=== PATIENT | male | born 1995 | race Caucasian/White ===

== ENCOUNTER 2017-04-28 17:52 | Emergency (ER) | payer OTHER ==
[~2017-04-28] VITALS: Wt 68.0 kg
[~2017-04-28 17:52] MED LIST: BENADRYL ALLERG25 M5 PO; CLARITIN10 MG PO; EPI-PEN1 MG/ML MR; EPIPEN 2-PAK1 MG/ML IJ; MEDROL DOSEPAK4 MG PO; PEPCID20 MG PO; PREDNISONE10 MG PO
[2017-04-28] MEDS ORDERED: EPIPEN 2-PAK1 MG/ML IJ (18:00)
[2017-04-28] MEDS ORDERED: PREDNISONE20 M1 PO (19:12)
[2017-04-28] MEDS ORDERED: BENADRYL ALLERG25 M5 PO (19:12)
[2017-04-28] MEDS ORDERED: PEPCID20 MG PO (19:12)
== END 2017-04-28 19:35 | disposition home or self-care (01) ==
LOC: ED 17:52
DX: T78.40XA Allergy, unspecified, initial encounter (principal); R60.9 Edema, unspecified; Z88.1 Allergy status to other antibiotic agents; Y92.9 Unspecified place or not applicable

== ENCOUNTER 2017-05-07 22:25 | Emergency (ER) | payer OTHER ==
[~2017-05-07] VITALS: Wt 68.0 kg
[~2017-05-07 22:25] MED LIST changes: +PREDNISONE20 M1 PO
[2017-05-07] MEDS ORDERED: HYDROCODONE BIT1 T11 PO (23:32)
== END 2017-05-08 00:41 | disposition home or self-care (01) ==
LOC: ED 22:25
DX: S62.396A Other fracture of fifth metacarpal bone, right hand, initial encounter for closed fracture (principal); Z88.1 Allergy status to other antibiotic agents; W22.01XA Walked into wall, initial encounter; Y93.89 Activity, other specified; Y92.89 Other specified places as the place of occurrence of the external cause; Y99.8 Other external cause status

== ENCOUNTER 2017-07-29 21:09 | Emergency (ER) | payer OTHER ==
[~2017-07-29] VITALS: Ht 187.9 cm; Wt 68.0 kg
--- NOTE | ~2017-07-29 | EKG ---
[place], [place] ELECTROCARDIOGRAM REPORT NAME: RAVINDRA MAYEN UNIT #: [id number] ROOM: DOCTOR: CARLITOS SCHAEFER,TAI BIRTHDATE: [birth year] DOS: 07/29/2017 TIME: 2124 hours. INTERPRETATION: 1. Sinus rhythm. 2. Nonspecific ST-T changes. TAI URBINA MD CM:EKGRPT:ELECTROCARDIOGRAM REPORT [id number] TAI URBINA MD
[~2017-07-29 21:09] MED LIST changes: +HYDROCODONE BIT1 T11 PO
[2017-07-29 22:14] LABS: BASO # 0.1 10*3/uL (0.0-0.1); BASO % 0.8 % (0.0-1.0); EOS # 0.5 10*3/uL (0.0-0.4); EOS % 6.9 % (1.0-4.0); HEMATOCRIT 42.3 % (42.0-52.0); HEMOGLOBIN 14.5 g/dl (14.0-18.0); LYMPH # 2.6 10*3/uL (1.3-4.4); LYMPH % 35.7 % (27.0-41.0); MEAN CELL VOLUME 87.9 fl (80.0-94.0); MEAN CORPUSCULAR HGB 30.1 pg (27.0-31.0); MEAN CORPUSCULAR HGB CONC 34.3 g/dl (33.0-37.0); MEAN PLATELET VOLUME 9.5 fl (9.6-12.3); MONO # 0.7 10*3/uL (0.1-1.0); MONO % 9.5 % (3.0-9.0); NEUT # 3.4 10*3/uL (2.3-7.9); PLATELET COUNT AUTOMATED 252 10*3/uL (130-400); RED BLOOD COUNT 4.81 10*6/uL (4.50-5.90); RED CELL DISTRI WIDTH 11.7 % (0-14.5); WHITE BLOOD COUNT 7.3 10*3/uL (4.8-10.8)
[2017-07-29 22:38] LABS: ALBUMIN 4.2 gm/dl (3.1-4.5); ALKALINE PHOSPHATASE 113 U/L (45-117); BUN 10 mg/dl (7-24); CHLORIDE 104 mmol/L (98-107); CPK 66 U/L (39-308); CREATININE 1.13 mg/dL (0.70-1.30); LDH 128 U/L (87-241); MAGNESIUM 2.2 mg/dL (1.5-2.1); POTASSIUM 3.2 mmol/L (3.5-5.1); SGOT/AST 12 IU/L (3-35); SGPT/ALT 12 U/L (12-78); SODIUM 140 mmol/L (136-145); TOTAL PROTEIN 7.9 gm/dL (6.4-8.2)
[2017-07-29 22:39] LABS: CKMB < 0.5 ng/ml (0.5-3.6); TROPONIN I < 0.015 ng/ml (<0.045)
[2017-07-29] MEDS ORDERED: VISTARIL25 MG PO (23:52)
== END 2017-07-30 00:05 | disposition home or self-care (01) ==
LOC: ED 21:09
PROVIDERS: Physician Assistant
DX: R07.9 Chest pain, unspecified (principal); R06.02 Shortness of breath; Z88.1 Allergy status to other antibiotic agents; Z91.018 Allergy to other foods

== ENCOUNTER 2019-09-21 21:01 | Emergency (ER) | payer OTHER ==
[~2019-09-21] VITALS: Ht 187.9 cm; Wt 68.0 kg
--- NOTE | ~2019-09-21 | EKG ---
[place], [place] ELECTROCARDIOGRAM REPORT NAME: RAVINDRA MAYEN UNIT #: [id number] ROOM: DOCTOR: EPIPHANY DRAFT REPORT BIRTHDATE: [birth year] [facility] Test Date: 2019-09-21 Test Time: 21:18:15 Pat Name: RAVINDRA MAYEN Department: Room: Gender: M Platform Engineer: : 1995 Requested By: GERARD MOBLEY Order Number: [id number] Reading MD: Andrew Lawson MD Measurements Intervals [place] Rate: 85 P: 84 NC: 146 QRS: 74 QRSD: 83 T: 17 QT: 336 QTc: 400 Interpretive Statements Sinus rhythm Left atrial enlargement Electronically Signed On 09-22-2019 8:13:42 PDT by Andrew Lawson MD CM:EKGRPT:ELECTROCARDIOGRAM REPORT [id number] GERARD MOBLEY EPIPHANY DRAFT REPORT GERARD MOBLEY
[~2019-09-21 21:01] MED LIST changes: +VISTARIL25 MG PO
[2019-09-21 21:20] LABS: BASO # 0.1 10*3/uL (0.0-0.1); BASO % 0.8 % (0.0-1.0); EOS # 0.8 10*3/uL (0.0-0.4); EOS % 10.1 % (1.0-4.0); HEMATOCRIT 44.4 % (42.0-52.0); HEMOGLOBIN 14.9 g/dl (14.0-18.0); LYMPH # 1.7 10*3/uL (1.3-4.4); LYMPH % 22.1 % (27.0-41.0); MEAN CELL VOLUME 92.3 fl (80.0-94.0); MEAN CORPUSCULAR HGB CONC 33.6 g/dl (33.0-37.0); MEAN PLATELET VOLUME 9.1 fl (9.6-12.3); MONO # 0.5 10*3/uL (0.1-1.0); MONO % 6.6 % (3.0-9.0); NEUT # 4.7 10*3/uL (2.3-7.9); NEUT % 60.1 % (47.0-73.0); PLATELET COUNT AUTOMATED 272 10*3/uL (130-400); RED BLOOD COUNT 4.81 10*6/uL (4.50-5.90); RED CELL DISTRI WIDTH 11.8 % (0-14.5); WHITE BLOOD COUNT 7.8 10*3/uL (4.8-10.8)
[2019-09-21 21:52] LABS: ALBUMIN 4.1 gm/dl (3.1-4.5); ALKALINE PHOSPHATASE 84 U/L (45-117); BUN 12 mg/dl (7-24); CHLORIDE 105 mmol/L (98-107); CPK 93 U/L (39-308); CREATININE 1.13 mg/dL (0.70-1.30); POTASSIUM 3.5 mmol/L (3.5-5.1); SGOT/AST 15 IU/L (3-35); SGPT/ALT 18 U/L (12-78); SODIUM 140 mmol/L (136-145); TOTAL PROTEIN 7.6 gm/dL (6.4-8.2)
[2019-09-21 21:53] LABS: TROPONIN I < 0.015 ng/ml (<0.045)
== END 2019-09-21 22:41 | disposition home or self-care (01) ==
LOC: ED 21:01
PROVIDERS: Nurse Practitioner Family
DX: T75.4XXA Electrocution, initial encounter (principal); R20.0 Anesthesia of skin; Z91.018 Allergy to other foods; Z88.1 Allergy status to other antibiotic agents; W86.1XXA Exposure to industrial wiring, appliances and electrical machinery, initial encounter; Y93.89 Activity, other specified; Y92.69 Other specified industrial and construction area as the place of occurrence of the external cause; Y99.0 Civilian activity done for income or pay

== ENCOUNTER → 2021-02-09 | Outpatient (CLI) | payer SELFPAY | END | disposition home or self-care (01) | LOC: COVID19 15:24 | PROVIDERS: ATTEND Pediatrics | DX: U07.1 COVID-19 (principal) ==

== ENCOUNTER 2021-04-30 14:05 | Inpatient (IN) | payer OTHER ==
[~2021-04-30] VITALS: Ht 185.4 cm; Wt 67.3 kg
[2021-04-30] VITALS (7 sets, daily range): BP systolic 114–139; BP diastolic 63–91
[2021-04-30 16:07] LABS: BASO # 0.1 10*3/uL (0.0-0.1); BASO % 0.4 % (0.0-1.0); EOS % 0.3 % (1.0-4.0); HEMATOCRIT 47.7 % (42.0-52.0); LYMPH # 0.8 10*3/uL (1.3-4.4); LYMPH % 7.3 % (27.0-41.0); MEAN CELL VOLUME 86.4 fl (80.0-94.0); MEAN CORPUSCULAR HGB 29.3 pg (27.0-31.0); MEAN PLATELET VOLUME 8.4 fl (9.6-12.3); MONO # 0.4 10*3/uL (0.1-1.0); MONO % 3.5 % (3.0-9.0); NEUT # 10.1 10*3/uL (2.3-7.9); PLATELET COUNT AUTOMATED 327 10*3/uL (130-400); RED BLOOD COUNT 5.52 10*6/uL (4.50-5.90); RED CELL DISTRI WIDTH 11.7 % (0-14.5); WHITE BLOOD COUNT 11.5 10*3/uL (4.8-10.8)
[2021-04-30 16:23] LABS: ALBUMIN 4.2 gm/dl (3.1-4.5); ALKALINE PHOSPHATASE 107 U/L (45-117); BUN 6 mg/dl (7-24); CHLORIDE 105 mmol/L (98-107); CREATININE 1.02 mg/dL (0.70-1.30); LIPASE 92 U/L (73-393); POTASSIUM 4.3 mmol/L (3.5-5.1); SGOT/AST 11 IU/L (3-35); SGPT/ALT 17 U/L (12-78); SODIUM 136 mmol/L (136-145); TOTAL PROTEIN 8.5 gm/dL (6.4-8.2)
[2021-04-30 16:24] LABS: TROPONIN I < 0.015 ng/ml (<0.045)
[2021-05-01] VITALS: BP 117/69
[2021-05-01 06:02] LABS: BUN 12 mg/dl (7-24); CHLORIDE 108 mmol/L (98-107); CREATININE 1.13 mg/dL (0.70-1.30); POTASSIUM 3.9 mmol/L (3.5-5.1); SODIUM 138 mmol/L (136-145)
[2021-05-01 06:04] LABS: INTERNATIONAL NORM RATIO 1.1 (2.0-3.5)
[2021-05-01 06:12] LABS: BASO # 0.1 10*3/uL (0.0-0.1); BASO % 0.7 % (0.0-1.0); EOS # 0.4 10*3/uL (0.0-0.4); EOS % 4.3 % (1.0-4.0); HEMATOCRIT 47.2 % (42.0-52.0); LYMPH # 2.3 10*3/uL (1.3-4.4); LYMPH % 26.9 % (27.0-41.0); MEAN CELL VOLUME 88.4 fl (80.0-94.0); MEAN CORPUSCULAR HGB 29.4 pg (27.0-31.0); MEAN CORPUSCULAR HGB CONC 33.3 g/dl (33.0-37.0); MEAN PLATELET VOLUME 8.7 fl (9.6-12.3); MONO # 0.7 10*3/uL (0.1-1.0); MONO % 8.6 % (3.0-9.0); NEUT # 5.1 10*3/uL (2.3-7.9); NEUT % 59.2 % (47.0-73.0); PLATELET COUNT AUTOMATED 301 10*3/uL (130-400); RED BLOOD COUNT 5.34 10*6/uL (4.50-5.90); RED CELL DISTRI WIDTH 11.8 % (0-14.5); WHITE BLOOD COUNT 8.6 10*3/uL (4.8-10.8)
[2021-05-01 08:00] VITALS: BP 119/77
[2021-05-01 12:00] VITALS: BP 121/75
[2021-05-01 16:00] VITALS: BP 109/71
[2021-05-01 20:00] VITALS: BP 121/81
[2021-05-02 05:55] LABS: BUN 11 mg/dl (7-24); CHLORIDE 106 mmol/L (98-107); CREATININE 1.11 mg/dL (0.70-1.30); POTASSIUM 4.4 mmol/L (3.5-5.1); SODIUM 136 mmol/L (136-145)
[2021-05-02 06:23] LABS: BASO # 0.1 10*3/uL (0.0-0.1); BASO % 0.7 % (0.0-1.0); EOS # 0.5 10*3/uL (0.0-0.4); EOS % 7.1 % (1.0-4.0); HEMATOCRIT 47.1 % (42.0-52.0); LYMPH % 28.1 % (27.0-41.0); MEAN CELL VOLUME 87.9 fl (80.0-94.0); MEAN CORPUSCULAR HGB 29.1 pg (27.0-31.0); MEAN CORPUSCULAR HGB CONC 33.1 g/dl (33.0-37.0); MEAN PLATELET VOLUME 8.5 fl (9.6-12.3); MONO # 0.7 10*3/uL (0.1-1.0); MONO % 9.6 % (3.0-9.0); NEUT # 3.8 10*3/uL (2.3-7.9); NEUT % 54.2 % (47.0-73.0); PLATELET COUNT AUTOMATED 296 10*3/uL (130-400); RED BLOOD COUNT 5.36 10*6/uL (4.50-5.90); RED CELL DISTRI WIDTH 11.9 % (0-14.5); WHITE BLOOD COUNT 7.1 10*3/uL (4.8-10.8)
[2021-05-02 08:00] VITALS: BP 111/77
[2021-05-02 12:00] VITALS: BP 130/87
[2021-05-02 16:00] VITALS: BP 116/96
[2021-05-02 20:00] VITALS: BP 121/80
[2021-05-03] VITALS: BP 121/83
[2021-05-03 08:00] VITALS: BP 130/81
[2021-05-03 12:00] VITALS: BP 123/88
[2021-05-03 16:00] VITALS: BP 118/81
[2021-05-03 20:00] VITALS: BP 122/83
[2021-05-04 06:38] LABS: BUN 15 mg/dl (7-24); CHLORIDE 100 mmol/L (98-107); CREATININE 1.04 mg/dL (0.70-1.30); POTASSIUM 4.2 mmol/L (3.5-5.1); SODIUM 136 mmol/L (136-145)
[2021-05-04 06:47] LABS: BASO # 0.1 10*3/uL (0.0-0.1); BASO % 0.7 % (0.0-1.0); EOS # 0.4 10*3/uL (0.0-0.4); EOS % 5.6 % (1.0-4.0); HEMATOCRIT 46.4 % (42.0-52.0); LYMPH # 1.8 10*3/uL (1.3-4.4); LYMPH % 23.1 % (27.0-41.0); MEAN CELL VOLUME 85.9 fl (80.0-94.0); MEAN CORPUSCULAR HGB 29.4 pg (27.0-31.0); MEAN CORPUSCULAR HGB CONC 34.3 g/dl (33.0-37.0); MEAN PLATELET VOLUME 8.5 fl (9.6-12.3); MONO # 0.7 10*3/uL (0.1-1.0); MONO % 9.6 % (3.0-9.0); NEUT # 4.6 10*3/uL (2.3-7.9); NEUT % 60.6 % (47.0-73.0); PLATELET COUNT AUTOMATED 298 10*3/uL (130-400); RED CELL DISTRI WIDTH 11.7 % (0-14.5); WHITE BLOOD COUNT 7.6 10*3/uL (4.8-10.8)
[2021-05-04 08:00] VITALS: BP 117/76
[2021-05-04 12:00] VITALS: BP 125/85
[2021-05-04 16:00] VITALS: BP 118/80
== END 2021-05-04 19:10 | disposition short-term general hospital (02) | DRG 143 ==
LOC: ED 14:05 → EDHOLD 19:21 → 4E 19:21
PROVIDERS: Internal Medicine Nephrology; Physician Assistant; Social Worker Clinical; Student in an Organized Health Care Education/Training Program; ADMIT Internal Medicine; ATTEND Internal Medicine
PROC: 0W9B30Z Drainage of Left Pleural Cavity with Drainage Device, Percutaneous Approach (ICD-10-PCS; principal; 2021-04-30)
DX: J93.11 Primary spontaneous pneumothorax (principal); F41.1 Generalized anxiety disorder; D72.829 Elevated white blood cell count, unspecified; E83.41 Hypermagnesemia; E80.6 Other disorders of bilirubin metabolism; E88.09 Other disorders of plasma-protein metabolism, not elsewhere classified; J93.82 Other air leak; J21.9 Acute bronchiolitis, unspecified; R23.0 Cyanosis; Z88.8 Allergy status to other drugs, medicaments and biological substances; Z91.018 Allergy to other foods; Z91.048 Other nonmedicinal substance allergy status

== ENCOUNTER → 2021-05-20 | Outpatient (CLI) | payer OTHER ==
[2021-05-21 15:07] LABS: ANTISCLERODERMA-70 AB <0.2 AI (0.0-0.9)
== END | disposition home or self-care (01) ==
LOC: LAB 12:56
PROVIDERS: ATTEND Internal Medicine Nephrology
DX: L94.3 Sclerodactyly (principal)

== ENCOUNTER 2022-12-27 18:22 | Emergency (ER) | payer OTHER ==
[~2022-12-27] VITALS: Ht 187.9 cm; Wt 72.6 kg
[2022-12-27 18:29] VITALS: BP 134/85
[2022-12-27 22:54] VITALS: BP 130/73
[2022-12-27 23:15] VITALS: BP 95/53
[2022-12-27] MEDS ORDERED: CARAFATE1 G1 PO (23:19)
[2022-12-27] MEDS ORDERED: PROTONIX40 MG PO (23:19)
[2022-12-27 23:30] VITALS: BP 95/42
[2022-12-27 23:44] VITALS: BP 107/56
== END 2022-12-28 00:29 | disposition short-term general hospital (02) ==
LOC: ED 18:22 → EDHOLD 23:30 → ED 23:30
DX: K22.2 Esophageal obstruction (principal); T18.120A Food in esophagus causing compression of trachea, initial encounter; F41.9 Anxiety disorder, unspecified; E83.41 Hypermagnesemia; E88.09 Other disorders of plasma-protein metabolism, not elsewhere classified; E80.6 Other disorders of bilirubin metabolism; Z91.018 Allergy to other foods; Z88.8 Allergy status to other drugs, medicaments and biological substances; X58.XXXA Exposure to other specified factors, initial encounter; Y93.89 Activity, other specified; Y92.009 Unspecified place in unspecified non-institutional (private) residence as the place of occurrence of the external cause; Y99.8 Other external cause status

== ENCOUNTER → 2023-04-15 | Outpatient (CLI) | payer OTHER ==
[~2023-04-15] MED LIST changes: +CARAFATE1 G1 PO; +PROTONIX40 MG PO
== END | disposition home or self-care (01) ==
LOC: RAD 12:50
PROVIDERS: ATTEND Internal Medicine Nephrology
DX: M25.512 Pain in left shoulder (principal); M54.2 Cervicalgia

== ENCOUNTER 2024-04-24 23:02 | Emergency (ER) | payer SELFPAY ==
[~2024-04-24] VITALS: Wt 70.3 kg
[2024-04-25 00:28] LABS: BASO # 0.1 10*3/uL (0.0-0.1); BASO % 0.6 % (0.0-1.0); EOS # 0.3 10*3/uL (0.0-0.4); EOS % 3.7 % (1.0-4.0); LYMPH # 1.7 10*3/uL (1.3-4.4); LYMPH % 21.4 % (27.0-41.0); MEAN CELL VOLUME 93.7 fl (80.0-94.0); MEAN CORPUSCULAR HGB 30.5 pg (27.0-31.0); MEAN CORPUSCULAR HGB CONC 32.6 g/dl (33.0-37.0); MEAN PLATELET VOLUME 8.7 fl (9.6-12.3); MONO # 0.4 10*3/uL (0.1-1.0); MONO % 4.9 % (3.0-9.0); NEUT # 5.5 10*3/uL (2.3-7.9); NEUT % 69.1 % (47.0-73.0); PLATELET COUNT AUTOMATED 281 10*3/uL (130-400); RED BLOOD COUNT 4.91 10*6/uL (4.50-5.90); WHITE BLOOD COUNT 7.9 10*3/uL (4.8-10.8)
[2024-04-25 00:41] LABS: ACT PARTIAL THROMBO TIME 28.5 SECONDS (20.0-32.1)
[2024-04-25 00:43] LABS: ALKALINE PHOSPHATASE 93 U/L (46-116); BUN 5 mg/dl (9-23); CHLORIDE 103 mmol/L (98-107); ETHYL ALCOHOL 299.2 mg/dl (<3); POTASSIUM 4.2 mmol/L (3.4-5.1); SGPT/ALT 8 U/L (5-49); TOTAL PROTEIN 8.2 gm/dL (6.0-8.0)
[2024-04-25] MEDS ORDERED: Tdap Vaccine 0.5 ML SYR (Adult Vaccine) IM ONE (00:55)
== END 2024-04-25 01:00 | disposition left against medical advice (07) ==
LOC: ED 23:02
PROVIDERS: Internal Medicine
DX: S02.2XXA Fracture of nasal bones, initial encounter for closed fracture (principal); S02.40CA Maxillary fracture, right side, initial encounter for closed fracture; S02.40DA Maxillary fracture, left side, initial encounter for closed fracture; F17.200 Nicotine dependence, unspecified, uncomplicated; Z53.29 Procedure and treatment not carried out because of patient's decision for other reasons; Z91.018 Allergy to other foods; Z79.899 Other long term (current) drug therapy; Y04.2XXA Assault by strike against or bumped into by another person, initial encounter; Y93.89 Activity, other specified; Y92.89 Other specified places as the place of occurrence of the external cause; Y99.8 Other external cause status

== ENCOUNTER 2024-05-22 21:11 | Emergency (ER) | payer OTHER ==
[~2024-05-22] VITALS: Ht 187.9 cm; Wt 68.0 kg
[2024-05-22] MEDS ORDERED: CELEXA20 MG PO (21:16)
[2024-05-22 21:31] LABS: BASO # 0.1 10*3/uL (0.0-0.1); BASO % 0.3 % (0.0-1.0); EOS # 0.4 10*3/uL (0.0-0.4); EOS % 2.8 % (1.0-4.0); HEMATOCRIT 42.1 % (42.0-52.0); LYMPH # 2.1 10*3/uL (1.3-4.4); LYMPH % 14.8 % (27.0-41.0); MEAN CELL VOLUME 90.1 fl (80.0-94.0); MEAN CORPUSCULAR HGB 30.2 pg (27.0-31.0); MEAN CORPUSCULAR HGB CONC 33.5 g/dl (33.0-37.0); MEAN PLATELET VOLUME 8.6 fl (9.6-12.3); MONO # 0.7 10*3/uL (0.1-1.0); MONO % 5.1 % (3.0-9.0); NEUT % 76.4 % (47.0-73.0); PLATELET COUNT AUTOMATED 275 10*3/uL (130-400); RED BLOOD COUNT 4.67 10*6/uL (4.50-5.90); RED CELL DISTRI WIDTH 11.9 % (0-14.5); WHITE BLOOD COUNT 14.4 10*3/uL (4.8-10.8)
[2024-05-22 21:49] LABS: BUN 7 mg/dl (9-23); CHLORIDE 100 mmol/L (98-107); ETHYL ALCOHOL 266.7 mg/dl (<3); POTASSIUM 3.5 mmol/L (3.4-5.1)
[2024-05-22] MEDS ORDERED: Thiamine 100 MG TAB PO ONE (21:50)
== END 2024-05-22 23:01 | disposition left against medical advice (07) ==
LOC: ED 21:11
PROVIDERS: Internal Medicine
DX: M79.641 Pain in right hand (principal); F10.129 Alcohol abuse with intoxication, unspecified; Z88.1 Allergy status to other antibiotic agents; Z91.018 Allergy to other foods; Z79.899 Other long term (current) drug therapy; Z53.29 Procedure and treatment not carried out because of patient's decision for other reasons; W22.01XA Walked into wall, initial encounter; Y93.89 Activity, other specified; Y92.89 Other specified places as the place of occurrence of the external cause; Y99.8 Other external cause status; Y90.8 Blood alcohol level of 240 mg/100 ml or more